=== PATIENT | female | born 1970 | race Hispanic/Latino ===

== ENCOUNTER 2018-08-13 09:12 | Observation (INO) | payer MEDICAID, OTHER ==
[2018-08-13] MEDS ORDERED: Aspirin 325 mg EC Tablets PO STA (10:24)
[2018-08-13] MEDS ORDERED: Sodium Chloride 0.9% 1,000 ML IV STA (10:25)
[2018-08-13] MEDS ORDERED: Magnesium Sulfate 1 gm in D5W 1 GM/100 ML BAG IVPB STA (10:25)
[2018-08-13] MEDS ORDERED: Sodium Chloride 0.9% 1,000 ML ONE (10:52)
--- NOTE | 2018-08-13 10:54 | RAD ---
HISTORY: chest pain COMPARISON: None available. TECHNIQUE: Chest PA and lateral FINDINGS: Examination limited by habitus. LUNGS: Biapical pleural thickening. Increased lucencies especially within the bilateral upper lung summers compatible with underlying emphysema. No focal consolidation. Please note that chest x-ray has limited sensitivity for the detection of pulmonary masses. PLEURA: No significant pleural effusion identified. No definite pneumothorax . CARDIOVASCULAR: Heart size appears within normal limits. OSSEOUS STRUCTURES: Osseous demineralization. Degenerative changes. VISUALIZED UPPER ABDOMEN: Unremarkable. OTHER FINDINGS: None. IMPRESSION: Emphysematous changes.
[2018-08-13 11:07] LABS: BASO # 0.1 K/uL (0.0-0.2); BASO % 1.1 % (0.0-2.0); EOS # 0.3 K/uL (0.0-0.7); EOS % 2.6 % (0.0-4.0); HEMOGLOBIN 11.8 g/dL (11.0-16.0); LYMPH # 2.7 K/uL (1.0-4.3); LYMPH % 25.6 % (20.0-40.0); MEAN CELL VOLUME 89.5 fL (81.0-99.0); MEAN CORPUSCULAR HEMOGLOBIN 29.9 pg (27.0-31.0); MEAN CORPUSCULAR HGB CONC 33.4 g/dL (33.0-37.0); MEAN PLATELET VOLUME 9.1 fL (7.2-11.7); MONO % 9.5 % (0.0-10.0); NEUT # 6.4 K/uL (1.8-7.0); NEUT % 61.2 % (50.0-75.0); RBC 3.94 Mil/uL (3.80-5.20); RED CELL DISTRIBUTION WIDTH 12.8 % (11.5-14.5); WHITE BLOOD COUNT 10.5 K/uL (4.8-10.8)
[2018-08-13 11:25] LABS: ALB/GLOB RATIO 1.3 (1.0-2.1); ALBUMIN 4.3 g/dL (3.5-5.0); ALT/SGPT 33 U/L (9-52); AST/SGOT 24 U/L (14-36); BLOOD UREA NITROGEN 24 mg/dL (7-17); CALCIUM 9.8 mg/dl (8.6-10.4); GFR NON-AFRICAN AMERICAN > 60; LIPASE 179 U/L (23-300)
--- NOTE | 2018-08-13 11:27 | C.PDOC ---
History Of Present Illness 47 year old female patient presents to ED for evaluation of chest pain, near syncope, and headache since 11pm last night. Notes continuos waxing and waning pain, she thought it was her reflux sos eh took her omeprazole with no improvement. Patient took Tylenol and Motrin 800mg for headache with no improvement. Patient states she feels lightheaded as if she is going to pass out , worse when walking. Patient reports she is taking clonidine for her menopause. Denies Hx of heart disease, fever, or chills. Time Seen by Provider: 08/13/18 10:02 Chief Complaint (Nursing): Chest Pain History Per: Patient History/Exam Limitations: no limitations Onset/Duration Of Symptoms: Hrs, Waxing/Waning Current Symptoms Are (Timing): Still Present Associated Symptoms: Other (Headache, Near syncope, Lightheadedness) Exacerbating Factors: None Alleviating Factors: None Recent travel outside of the [place]: No Past Medical History Reviewed: Historical Data, Nursing Documentation, Vital Signs Vital Signs: Last Vital Signs Temp 98.2 F 08/13/18 09:24 Pulse 93 H 08/13/18 09:24 Resp 18 08/13/18 09:24 BP 146/88 08/13/18 09:24 Pulse Ox 99 08/13/18 11:49 - Medical History PMH: Anxiety, Asthma, Depression, Migraine - [facility] Procedures INJECT/INFUSE NEC (07/09/14) Family History: States: Unknown Family Hx - Social History Hx Alcohol Use: Yes Hx Substance Use: No - Immunization History Hx Tetanus Toxoid Vaccination: Yes Hx Influenza Vaccination: No Hx Pneumococcal Vaccination: No Review Of Systems Except As Marked, All Systems Reviewed And Found Negative. Constitutional: Negative for: Fever, Chills Cardiovascular: Positive for: Chest Pain (near syncope ), Light Headedness. Negative for: Palpitations Respiratory: Negative for: Cough Gastrointestinal: Negative for: Nausea, Vomiting, Diarrhea Neurological: Positive for: Headache, Other (Near syncope) Physical Exam - Physical Exam Appears: Non-toxic Skin: Normal Color, Warm, Dry Head: Atraumatic, Normacephalic Eye(s): bilateral: Normal Inspection Oral Mucosa: Moist Neck: Normal, Supple Chest: Symmetrical Cardiovascular: Rhythm Regular Respiratory: Normal Breath Sounds, No Rales, No Rhonchi, No Wheezing Gastrointestinal/Abdominal: Soft, No Tenderness Back: No CVA Tenderness Extremity: Normal ROM (x4) Neurological/Psych: Oriented x3, Normal Speech Gait: Steady ED Course And Treatment - Laboratory Results Result Diagrams: 08/13/18 10:51 08/13/18 10:51 ECG: Interpreted By Me, Viewed By Me ECG Rhythm: Sinus Rhythm ECG Interpretation: Normal Rate From EC O2 Sat by Pulse Oximetry: 99 (RA) Pulse Ox Interpretation: Normal Progress - Re-Evaluation Re-evaluation Note: 08/13/18 11:46 CO PERSIST [facility]. NEURO INTACT. LABS, CT PE 08/13/18 12:05 D/W DR LANDAVERDE C/F PMD WILL ADMIT - Data Reviewed Data Reviewed: Lab, Diagnostic imaging, EKG, Old records Medical Decision Making Medical Decision Making: Plan: - CT Scan: head w/o contrast - Chest X-ray: PA/LAT - EKG sent: normal sinus 88 - Blood work sent. - Given: Asprin, Nitroglycerin, Magnesium Sulfate, Reglan, Sodium Chloride Disposition Counseled Patient/Family Regarding: Studies Performed, Diagnosis - Disposition Disposition: HOSPITALIZED Disposition Time: 12:05 Condition: STABLE Forms: [employer] (Kazakh) - POA Present On Arrival: None - Clinical Impression Clinical Impression: Chest pain, Headache - Scribe Statement The provider has reviewed the documentation as recorded by the Scribe (Delores Slater) Provider Attestation: All medical record entries made by the Scribe were at my direction and personally dictated by me. I have reviewed the chart and agree that the record accurately reflects my personal performance of the history, physical exam, medical decision making, and the department course for this patient. I have also personally directed, reviewed, and agree with the discharge instructions and disposition. Decision To Admit - Pt Status Changed To: Hospital Disposition Of: Observation - . Bed Request Type: Telemetry Admitting Physician: Gabriel Landaverde Patient Diagnosis: Chest pain, Headache
--- NOTE | 2018-08-13 11:35 | CT ---
Date of service: 08/13/2018 PROCEDURE: CT HEAD WITHOUT CONTRAST. HISTORY: HEADACHE COMPARISON: None available. TECHNIQUE: Axial computed tomography images were obtained through the head/brain without intravenous contrast. Radiation dose: Total exam DLP = 1127.29 mGy-cm. This CT exam was performed using one or more of the following dose reduction techniques: Automated exposure control, adjustment of the mA and/or kV according to patient size, and/or use of iterative reconstruction technique. . FINDINGS: HEMORRHAGE: No evidence of acute bony, subarachnoid or extra-axial hemorrhage. . BRAIN: Questionable minimal chronic periventricular white matter ischemic changes. . There also appear to be subtle low-attenuation changes both at anterior limbs of the internal capsules which could represent volume averaging of deep white matter however the possibility of a tiny chronic lacunar type infarcts also not excluded (axial series 4, image number 21 and 22). Mild generalized volume loss. No obvious parenchymal nor extra-axial mass or collection. . VENTRICLES: No obstructive hydrocephalus. CALVARIUM: Unr calvarium intact. PARANASAL SINUSES: Unremarkable as visualized. No significant inflammatory changes. MASTOID AIR CELLS: Unremarkable as visualized. No inflammatory changes. OTHER FINDINGS: None. IMPRESSION: No acute intracranial hemorrhage. Suspect minimal chronic periventricular white matter ischemic changes. Few small low-attenuation foci seen within the anterior limbs of both internal capsule likely representing volume averaging of deep white matter however the possibility tiny chronic lacunar type infarcts cannot be completely excluded.
[2018-08-13] MEDS ORDERED: Aspirin 325 mg EC Tablets PO ONE (11:40)
[2018-08-13] MEDS ORDERED: Magnesium Sulfate 1 gm in D5W 1 GM/100 ML BAG IVPB ONE (11:40)
--- NOTE | 2018-08-13 17:36 | CP.PCM.HP ---
Past Patient History - Past Social History Smoking Status: Never Smoked - PULMONARY Hx Asthma: Yes - NEUROLOGICAL Hx Migraine: Yes - PSYCHIATRIC Hx Anxiety: Yes Hx Depression: Yes Hx Substance Use: No - SURGICAL HISTORY Hx Surgeries: No Meds Allergies/Adverse Reactions: Allergies Allergy/AdvReac Type Severity Reaction Status Date / Time No Known Allergies Allergy Verified 08/13/18 10:24 Results - Vital Signs Recent Vital Signs: Last Vital Signs Temp 97.6 F 08/13/18 15:34 Pulse 68 08/13/18 15:34 Resp 18 08/13/18 15:34 BP 120/78 08/13/18 15:34 Pulse Ox 99 08/13/18 15:34 - Labs Result Diagrams: 08/13/18 10:51 08/13/18 10:51 Labs: Laboratory Results - last 24 hr 08/13/18 08/13/18 10:51 10:51 WBC 10.5 RBC 3.94 Hgb 11.8 Hct 35.3 MCV 89.5 MCH 29.9 MCHC 33.4 RDW 12.8 Plt Count 240 MPV 9.1 Neut % (Auto) 61.2 Lymph % (Auto) 25.6 [place] % (Auto) 9.5 Eos % (Auto) 2.6 Baso % (Auto) 1.1 Neut # (Auto) 6.4 Lymph # (Auto) 2.7 [place] # (Auto) 1.0 H Eos # (Auto) 0.3 Baso # (Auto) 0.1 Sodium 140 Potassium 4.1 Chloride 105 Carbon Dioxide 24 Anion Gap 16 BUN 24 H Creatinine 0.7 Est GFR ( Amer) > 60 Est GFR (Non-Af Amer) > 60 Random Glucose 88 Calcium 9.8 Total Bilirubin 0.6 AST 24 ALT 33 Alkaline Phosphatase 133 H Troponin I < 0.0120 Total Protein 7.6 Albumin 4.3 Globulin 3.3 Albumin/Globulin Ratio 1.3 Lipase 179
[2018-08-13] MEDS: Enoxaparin 40 mg Syringe SC SCH (18:18)
[2018-08-14] MEDS: Enoxaparin 40 mg Syringe SC SCH (09:54)
[2018-08-14] MEDS: Venlafaxine 150 mg ER Cap PO SCH (09:54)
--- NOTE | 2018-08-14 11:29 | CP.PCM.CON ---
<Javier Barajas E - Last Filed: 08/14/18 18:23> History of Present Illness - History of Present Illness History of Present Illness: Cardiology consult note ( Dr. Sheridan's service) HPI: Patient is a 47 year old female with past medical history GERD, asthma, migraines, anxiety and depression, who presented of the ED on 08/13/18 complaining of chest pain that started around 11pm after food. Patient describes the pain as a 7-8/10 intermittent pressure-like midsternal chest pain radiating to her right arm. Patient thought it was reflux and she took her omeprazole, which provided minimal relief. During the episode, patient took her BP and record a value of 150/90, ( normal BP 110/70), there she took her clonidine 0.1mg PO. Patient normally take clonidine for perimenopausal hotflashes. Patient admits to associated symptoms of headache (which she took Motrin 800mg along with Tylenol and a cup of coffee, with no relief), nausea, dizziness and mild shortness of breath but denies syncope, palpitations, visual disturbances, fever, chills, recent sickness or travels. PMD: Dr. So PMHx: GERD, asthma, migraines, anxiety, depression PSHx: denies FamHx: mother had [place] at 70 years old, last year from malignant melanoma Medications: Butalbital/ ASA/ Caffeine 1 tab PO Q6H, Clonidine 0.1mg TD HS, Singulair 10mg PO daily, Restoril 30mg PO HS and Effexor 150mg PO daily Allergies: NKDA Social Hx: Denies hx of tobacco use or illicit drug. Admits to social ETOH use Review of Systems - Constitutional Constitutional: Headache. absent: Chills, Fever - EENT Eyes: absent: Blurred Vision, Change in Vision Ears: Dizziness - Cardiovascular Cardiovascular: Chest Pain, Chest Pain at Rest, Dyspnea. absent: Palpitations - Respiratory Respiratory: Dyspnea - Gastrointestinal Gastrointestinal: Heartburn, Nausea. absent: Abdominal Pain, Vomiting - Reproductive: Female Additional comments: Perimenopausal - Neurological Neurological: Dizziness, Headaches. absent: Numbness, Tingling, Weakness - Endocrine Endocrine: absent: Palpitations Past Patient History - Past Social History Smoking Status: Never Smoked - PULMONARY Hx Asthma: Yes - NEUROLOGICAL Hx Migraine: Yes - PSYCHIATRIC Hx Anxiety: Yes Hx Depression: Yes Hx Substance Use: No - SURGICAL HISTORY Hx Surgeries: No Meds Allergies/Adverse Reactions: Allergies Allergy/AdvReac Type Severity Reaction Status Date / Time No Known Allergies Allergy Verified 08/13/18 10:24 - Medications Medications: Current Medications Clonidine HCl (Catapres Tts1 0.1 Mg/24 Hr) 1 patch TD QWK@2200 [facility] Last Admin: 08/13/18 21:23 Dose: 1 patch Enoxaparin Sodium (Lovenox) 40 mg SC DAILY [facility] Last Admin: 08/14/18 09:54 Dose: 40 mg Montelukast Sodium (Singulair) 10 mg PO DAILY [facility] Last Admin: 08/14/18 09:54 Dose: 10 mg Pantoprazole Sodium (Protonix Inj) 40 mg IVP DAILY [facility] Last Admin: 08/14/18 09:54 Dose: 40 mg Pneumococcal Polyvalent Vaccine (Pneumovax 23 Vaccine) 0.5 ml IM .ONCE ONE Stop: 08/15/18 10:01 Temazepam (Restoril) 30 mg PO [facility] Last Admin: 08/13/18 21:29 Dose: 30 mg Venlafaxine HCl (Effexor Xr) 150 mg PO DAILY [facility] Last Admin: 08/14/18 09:54 Dose: 150 mg Physical Exam - Constitutional Appears: No Acute Distress - Head Exam Head Exam: ATRAUMATIC, NORMAL INSPECTION - Eye Exam Eye Exam: EOMI, Normal appearance - ENT Exam ENT Exam: Mucous Membranes Moist - Respiratory Exam Respiratory Exam: Clear to Auscultation Bilateral, NORMAL BREATHING PATTERN. absent: Prolonged Expiratory Phase, Rhonchi, Wheezes, Respiratory Distress - Cardiovascular Exam Cardiovascular Exam: REGULAR RHYTHM, +S1, +S2 - GI/Abdominal Exam GI & Abdominal Exam: Normal Bowel Sounds, Soft. absent: Distended, Firm, Guarding, Tenderness - Extremities Exam Extremities exam: Positive for: normal inspection. Negative for: calf tenderness, pedal edema, tenderness - Neurological Exam Neurological exam: Alert, Oriented x3 - Psychiatric Exam Psychiatric exam: Anxious - Skin Skin Exam: Normal Color Results - Vital Signs Recent Vital Signs: Last Vital Signs Temp 98.1 F 08/14/18 07:49 Pulse 87 08/14/18 08:00 Resp 20 08/14/18 07:49 BP 130/83 08/14/18 07:49 Pulse Ox 98 08/14/18 08:00 - Labs Result Diagrams: 08/14/18 11:33 08/14/18 11:33 Labs: Laboratory Results - last 24 hr 08/13/18 08/13/18 10:51 19:23 Sodium 140 Potassium 4.1 Chloride 105 Carbon Dioxide 24 Anion Gap 16 BUN 24 H Creatinine 0.7 Est GFR ( Amer) > 60 Est GFR (Non-Af Amer) > 60 Random Glucose 88 Calcium 9.8 Total Bilirubin 0.6 AST 24 ALT 33 Alkaline Phosphatase 133 H Troponin I < 0.0120 < 0.0120 Total Protein 7.6 Albumin 4.3 Globulin 3.3 Albumin/Globulin Ratio 1.3 Lipase 179 Assessment & Plan (1) Chest pain Assessment and Plan: Patient is a 47 year old female with past medical history GERD, asthma, migraines, anxiety and depression, who presented of the ED on 08/13/18 complaining of 7-8/10 intermittent pressure-like midsternal chest pain radiating to her right arm, with associated symptoms of nausea, dizziness and headache: 1. EKG: NSR at 88, with no EKG changes 2. Troponin negative X2 3. TSH and free T4: 0.99 and 1.01, respectively 4. hgbA1c: 5.0 5. F/u am Lipid panel 6. F/u echocardiogram 7. Plans for pharmacological stress test tomorrow All plans and management discussed with Dr. Sheridan Status: Acute <Edgard Sheridan - Last Filed: 08/14/18 23:56> Meds - Medications Medications: Current Medications Acetaminophen (Tylenol 325mg Tab) 650 mg PO Q6 PRN PRN Reason: pain or headache Last Admin: 08/14/18 17:35 Dose: 650 mg Clonidine HCl (Catapres Tts1 0.1 Mg/24 Hr) 1 patch TD QWK@2200 [facility] Last Admin: 08/13/18 21:23 Dose: 1 patch Enoxaparin Sodium (Lovenox) 40 mg SC DAILY [facility] Last Admin: 08/14/18 09:54 Dose: 40 mg Montelukast Sodium (Singulair) 10 mg PO DAILY [facility] Last Admin: 08/14/18 09:54 Dose: 10 mg Pantoprazole Sodium (Protonix Inj) 40 mg IVP DAILY [facility] Last Admin: 08/14/18 09:54 Dose: 40 mg Pneumococcal Polyvalent Vaccine (Pneumovax 23 Vaccine) 0.5 ml IM .ONCE ONE Stop: 08/15/18 10:01 Temazepam (Restoril) 30 mg PO HS [facility] Last Admin: 08/14/18 21:10 Dose: 30 mg Venlafaxine HCl (Effexor Xr) 150 mg PO DAILY [facility] Last Admin: 08/14/18 09:54 Dose: 150 mg Results - Vital Signs Recent Vital Signs: Last Vital Signs Temp 97.7 F 08/14/18 15:54 Pulse 85 08/14/18 20:00 Resp 20 08/14/18 15:54 BP 147/93 H 08/14/18 15:54 Pulse Ox 98 08/14/18 16:00 - Labs Result Diagrams: 08/14/18 11:33 08/14/18 11:33 Labs: Laboratory Results - last 24 hr 08/14/18 08/14/18 08/14/18 11:33 11:33 11:33 WBC 8.1 RBC 3.77 L Hgb 11.2 Hct 33.6 L MCV 89.2 MCH 29.7 MCHC 33.3 RDW 13.0 Plt Count 218 MPV 9.4 Neut % (Auto) 62.6 Lymph % (Auto) 23.3 [place] % (Auto) 9.2 Eos % (Auto) 3.7 Baso % (Auto) 1.2 Neut # (Auto) 5.0 Lymph # (Auto) 1.9 [place] # (Auto) 0.7 Eos # (Auto) 0.3 Baso # (Auto) 0.1 Sodium 140 Potassium 3.5 L Chloride 108 H Carbon Dioxide 20 L Anion Gap 16 BUN 14 Creatinine 0.6 L Est GFR ( Amer) > 60 Est GFR (Non-Af Amer) > 60 Random Glucose 174 H Hemoglobin A1c 5.0 Calcium 8.7 Phosphorus 3.5 Magnesium 2.0 Total Bilirubin 0.3 AST 19 ALT 32 Alkaline Phosphatase 92 Total Protein 6.2 L Albumin 3.6 Globulin 2.6 Albumin/Globulin Ratio 1.4 Free T4 TSH 3rd Generation 0.99 08/14/18 11:33 WBC RBC Hgb Hct MCV MCH MCHC RDW Plt Count MPV Neut % (Auto) Lymph % (Auto) [place] % (Auto) Eos % (Auto) Baso % (Auto) Neut # (Auto) Lymph # (Auto) [place] # (Auto) Eos # (Auto) Baso # (Auto) Sodium Potassium Chloride Carbon Dioxide Anion Gap BUN Creatinine Est GFR ( Amer) Est GFR (Non-Af Amer) Random Glucose Hemoglobin A1c Calcium Phosphorus Magnesium Total Bilirubin AST ALT Alkaline Phosphatase Total Protein Albumin Globulin Albumin/Globulin Ratio Free T4 1.01 TSH 3rd Generation Assessment & Plan - Assessment and Plan (Free Text) Assessment: Patient seen and evaluated personally by me Plan of care d/w the medical pathologist and as documented
[2018-08-14 11:42] LABS: BASO # 0.1 K/uL (0.0-0.2); BASO % 1.2 % (0.0-2.0); EOS # 0.3 K/uL (0.0-0.7); EOS % 3.7 % (0.0-4.0); HEMOGLOBIN 11.2 g/dL (11.0-16.0); LYMPH # 1.9 K/uL (1.0-4.3); LYMPH % 23.3 % (20.0-40.0); MEAN CELL VOLUME 89.2 fL (81.0-99.0); MEAN CORPUSCULAR HEMOGLOBIN 29.7 pg (27.0-31.0); MEAN CORPUSCULAR HGB CONC 33.3 g/dL (33.0-37.0); MEAN PLATELET VOLUME 9.4 fL (7.2-11.7); MONO # 0.7 K/uL (0.0-0.8); MONO % 9.2 % (0.0-10.0); NEUT % 62.6 % (50.0-75.0); NRBC % 0.1 % (0.0-2.0); RBC 3.77 Mil/uL (3.80-5.20); WHITE BLOOD COUNT 8.1 K/uL (4.8-10.8)
[2018-08-14 12:23] LABS: ALB/GLOB RATIO 1.4 (1.0-2.1); ALBUMIN 3.6 g/dL (3.5-5.0); ALT/SGPT 32 U/L (9-52); AST/SGOT 19 U/L (14-36); BLOOD UREA NITROGEN 14 mg/dL (7-17); CALCIUM 8.7 mg/dl (8.6-10.4); GFR NON-AFRICAN AMERICAN > 60
--- NOTE | 2018-08-14 18:08 | CP.PCM.PN ---
Subjective - Date & Time of Evaluation Date of Evaluation: 08/14/18 Time of Evaluation: 18:08 Objective - Vital Signs/Intake and Output Vital Signs (last 24 hours): Temp Pulse Resp BP Pulse Ox 97.7 F 84 20 147/93 H 98 08/14/18 15:54 08/14/18 16:00 08/14/18 15:54 08/14/18 15:54 08/14/18 16:00 Intake and Output: 08/14/18 08/14/18 06:59 18:59 Intake Total 120 Balance 120 - Medications Medications: Current Medications Acetaminophen (Tylenol 325mg Tab) 650 mg PO Q6 PRN PRN Reason: pain or headache Last Admin: 08/14/18 17:35 Dose: 650 mg Clonidine HCl (Catapres Tts1 0.1 Mg/24 Hr) 1 patch TD QWK@2200 [facility] Last Admin: 08/13/18 21:23 Dose: 1 patch Enoxaparin Sodium (Lovenox) 40 mg SC DAILY [facility] Last Admin: 08/14/18 09:54 Dose: 40 mg Montelukast Sodium (Singulair) 10 mg PO DAILY [facility] Last Admin: 08/14/18 09:54 Dose: 10 mg Pantoprazole Sodium (Protonix Inj) 40 mg IVP DAILY [facility] Last Admin: 08/14/18 09:54 Dose: 40 mg Pneumococcal Polyvalent Vaccine (Pneumovax 23 Vaccine) 0.5 ml IM .ONCE ONE Stop: 08/15/18 10:01 Temazepam (Restoril) 30 mg PO [facility] Last Admin: 08/13/18 21:29 Dose: 30 mg Venlafaxine HCl (Effexor Xr) 150 mg PO DAILY [facility] Last Admin: 08/14/18 09:54 Dose: 150 mg - Labs Labs: 08/14/18 11:33 08/14/18 11:33
[2018-08-15 05:02] LABS: CK-MB < 0.22 ng/mL (0.0-3.38)
--- NOTE | 2018-08-15 05:48 | CARD ---
APPROVED REPORT Date of service: 08/14/2018 EXAM: Two-dimensional and M-mode echocardiogram with Doppler and color Doppler. INDICATION Chest Pain 2D DIMENSIONS IVSd0.8 (0.7-1.1cm)Aortic Root (2D)2.4 (2.0-3.7cm) LVDd3.8 (3.9-5.9cm)PWd0.8 (0.7-1.1cm) LVDs2.3 (2.5-4.0cm)FS (%) 37.9 % LVEF (%)68.9 (>50%) M-Mode DIMENSIONS RVDd1.76 (2.1-3.2cm)Left Atrium (MM)3.10 (2.5-4.0cm) IVSd0.70 (0.7-1.1cm)Aortic Root2.19 (2.2-3.7cm) LVDd4.10 (4.0-5.6cm)Aortic Cusp Exc.1.64 (1.5-2.0cm) PWd0.64 (0.7-1.1cm)FS (%) 41 % LVDs2.40 (2.0-3.8cm)LVEF (%)73 (>50%) Mitral Valve MV E Vnxpmyxm820.2cm/sMV A Mhkwodwt36.5cm/sE/A ratio1.2 TDI E/Lateral E'0.0E/Medial E'0.0 Tricuspid Valve TR Peak Mxnkhbax174pv/sTR Peak Gr.[id number] LEFT VENTRICLE The left ventricle is normal size. There is normal left ventricular wall thickness. Left ventricle systolic function is normal. The Ejection Fraction is 65-70%. There is normal LV segmental wall motion. The left ventricular diastolic function is normal. No left ventricle thrombus noted on this study. RIGHT VENTRICLE The right ventricle is normal size. There is normal right ventricular wall thickness. The right ventricular systolic function is normal. ATRIA The left atrium size is normal. The right atrium size is normal. The interatrial septum is intact with no evidence for an atrial septal defect. AORTIC VALVE The aortic valve is normal in structure. No aortic regurgitation is present. There is no aortic valvular stenosis. There is no aortic valvular vegetation. MITRAL VALVE The mitral valve is normal in structure. There is no evidence of mitral valve prolapse. There is no mitral valve stenosis. There is no mitral valve regurgitation noted. TRICUSPID VALVE The tricuspid valve is normal in structure. There is trace tricuspid regurgitation. Right ventricular systolic pressure is estimated at 30 mmHg. There is no pulmonary hypertension. PULMONIC VALVE The pulmonic valve is not well visualized. There is no pulmonic valvular regurgitation. GREAT VESSELS The aortic root is normal in size. PERICARDIAL EFFUSION There is no significant pericardial effusion. <Conclusion> Left ventricle systolic function is normal. The Ejection Fraction is 65-70%. No aortic regurgitation is present. There is no mitral valve regurgitation noted. There is trace tricuspid regurgitation. There is no pulmonary hypertension. There is no pulmonic valvular regurgitation.
[2018-08-15] MEDS ORDERED: Caffeine Citrated **INJ** 20 MG/ML IV ONE (07:19)
[2018-08-15 08:11] LABS: HDL CHOLESTEROL 51 mg/dL (30-70)
[2018-08-15 08:25] LABS: LDL CHOLESTEROL 125 mg/dL (0-129)
[2018-08-15] MEDS ORDERED: Pneumococcal 23-Valent Vaccine IM ONE (10:00)
[2018-08-15] MEDS: Venlafaxine 150 mg ER Cap PO SCH (10:31)
[2018-08-15] MEDS: Enoxaparin 40 mg Syringe SC SCH (10:31)
[2018-08-15] MEDS: Apap-Butalbital-Caffeine 325-50-40mg Tab PO PRN ×2 (14:29→23:36)
[2018-08-15] MEDS ORDERED: Potassium Chloride 20 mEq ER Tab PO ONE (16:15)
--- NOTE | 2018-08-15 16:20 | CP.PCM.PN ---
Subjective - Date & Time of Evaluation Date of Evaluation: 08/15/18 Time of Evaluation: 16:20 Objective - Vital Signs/Intake and Output Vital Signs (last 24 hours): Temp Pulse Resp BP Pulse Ox 98.1 F 88 20 135/88 98 08/15/18 15:05 08/15/18 15:05 08/15/18 15:05 08/15/18 15:05 08/15/18 15:05 - Medications Medications: Current Medications Acetaminophen (Tylenol 325mg Tab) 650 mg PO Q6 PRN PRN Reason: pain or headache Last Admin: 08/15/18 10:33 Dose: 650 mg Acetaminophen/Butalbital/Caffeine (Fioricet) 1 tab PO Q6H PRN PRN Reason: Migraine headache Last Admin: 08/15/18 14:29 Dose: 1 tab Clonidine HCl (Catapres Tts1 0.1 Mg/24 Hr) 1 patch TD QWK@2200 [facility] Last Admin: 08/13/18 21:23 Dose: 1 patch Enoxaparin Sodium (Lovenox) 40 mg SC DAILY [facility] Last Admin: 08/15/18 10:31 Dose: 40 mg Mometasone Furoate (Asmanex Twisthaler 110 Mcg) 1 puff INH RBID [facility] Montelukast Sodium (Singulair) 10 mg PO DAILY [facility] Last Admin: 08/15/18 10:31 Dose: 10 mg Pantoprazole Sodium (Protonix Inj) 40 mg IVP DAILY [facility] Last Admin: 08/15/18 10:31 Dose: 40 mg Potassium Chloride (K-Dur 20 Meq Er Tab) 40 meq PO ONCE ONE Stop: 08/15/18 16:16 Temazepam (Restoril) 30 mg PO HS [facility] Last Admin: 08/14/18 21:10 Dose: 30 mg Venlafaxine HCl (Effexor Xr) 150 mg PO DAILY [facility] Last Admin: 08/15/18 10:31 Dose: 150 mg - Labs Labs: 08/14/18 11:33 08/14/18 11:33
[2018-08-15] MEDS ORDERED: Iodixanol 320 MG/ML 100 ML BOTTLE IV ONE (16:45)
--- NOTE | 2018-08-15 17:28 | CT ---
Date of service: 08/15/18 CTA chest PE protocol Indication: Rule out PE Technique: Contiguous axial images were obtained through the chest with intravenous contrast enhancement. Sagittal and coronal reconstructions were generated and reviewed. This CT exam was performed using 1 or more of the following dose reduction techniques: Automated exposure control, adjustment of the MAA and/or kV according to patient size, and/or use of iterative reconstruction technique. IV Contrast: 100 mL Visipaque IV Radiation dose (DLP): 419.14 MGy-cm. Comparison: Chest x-ray performed 08/13/18 Findings: Visualized portions of the inferior thyroid gland appear unremarkable. The mediastinal and hilar vascular structures appear within normal limits. The heart appears within normal limits of size. No large central or segmental pulmonary embolus evident. No focal consolidation. No pleural effusion. No pneumothorax. No suspicious pulmonary nodules measuring greater than 5 mm. Limited visualized portions of the upper abdomen appear grossly unremarkable. No acute osseous abnormality is detected. Impression: No large central or segmental pulmonary embolus identified.
[2018-08-15] MEDS: Mometasone 110 mcg/puff-30 puff Inh INH SCH (22:26)
[2018-08-16] MEDS: Apap-Butalbital-Caffeine 325-50-40mg Tab PO PRN ×2 (05:52→18:54)
[2018-08-16] MEDS: Mometasone 110 mcg/puff-30 puff Inh INH SCH ×2 (07:52→19:45)
[2018-08-16] MEDS: Venlafaxine 150 mg ER Cap PO SCH (09:53)
[2018-08-16] MEDS: Enoxaparin 40 mg Syringe SC SCH (09:56)
--- NOTE | 2018-08-16 18:46 | CP.PCM.PN ---
Subjective - Date & Time of Evaluation Date of Evaluation: 08/16/18 Time of Evaluation: 18:46 Objective - Vital Signs/Intake and Output Vital Signs (last 24 hours): Temp Pulse Resp BP Pulse Ox 98.1 F 81 18 123/83 96 08/16/18 15:47 08/16/18 16:00 08/16/18 15:47 08/16/18 15:47 08/16/18 15:47 - Medications Medications: Current Medications Acetaminophen (Tylenol 325mg Tab) 650 mg PO Q6 PRN PRN Reason: pain or headache Last Admin: 08/15/18 10:33 Dose: 650 mg Acetaminophen/Butalbital/Caffeine (Fioricet) 1 tab PO Q6H PRN PRN Reason: Migraine headache Last Admin: 08/16/18 05:52 Dose: 1 tab Clonidine HCl (Catapres Tts1 0.1 Mg/24 Hr) 1 patch TD QWK@2200 [facility] Last Admin: 08/13/18 21:23 Dose: 1 patch Enoxaparin Sodium (Lovenox) 40 mg SC DAILY [facility] Last Admin: 08/16/18 09:56 Dose: 40 mg Mometasone Furoate (Asmanex Twisthaler 110 Mcg) 1 puff INH RBID [facility] Last Admin: 08/16/18 07:52 Dose: 1 puff Montelukast Sodium (Singulair) 10 mg PO DAILY [facility] Last Admin: 08/16/18 09:53 Dose: 10 mg Pantoprazole Sodium (Protonix Inj) 40 mg IVP DAILY [facility] Last Admin: 08/16/18 09:53 Dose: 40 mg Temazepam (Restoril) 30 mg PO HS [facility] Last Admin: 08/15/18 21:16 Dose: 30 mg Venlafaxine HCl (Effexor Xr) 150 mg PO DAILY [facility] Last Admin: 08/16/18 09:53 Dose: 150 mg - Labs Labs: 08/14/18 11:33 08/14/18 11:33
--- NOTE | 2018-08-16 22:58 | CP.PCM.PN ---
Subjective - Date & Time of Evaluation Date of Evaluation: 08/16/18 Time of Evaluation: 09:50 - Subjective Subjective: Patient s/p stress test Normal stress test and normal EF Medical management Objective - Vital Signs/Intake and Output Vital Signs (last 24 hours): Temp Pulse Resp BP Pulse Ox 98.1 F 81 18 123/83 96 08/16/18 15:47 08/16/18 16:00 08/16/18 15:47 08/16/18 15:47 08/16/18 15:47 - Medications Medications: Current Medications Acetaminophen (Tylenol 325mg Tab) 650 mg PO Q6 PRN PRN Reason: pain or headache Last Admin: 08/15/18 10:33 Dose: 650 mg Acetaminophen/Butalbital/Caffeine (Fioricet) 1 tab PO Q6H PRN PRN Reason: Migraine headache Last Admin: 08/16/18 18:54 Dose: 1 tab Clonidine HCl (Catapres Tts1 0.1 Mg/24 Hr) 1 patch TD QWK@2200 [facility] Last Admin: 08/13/18 21:23 Dose: 1 patch Enoxaparin Sodium (Lovenox) 40 mg SC DAILY [facility] Last Admin: 08/16/18 09:56 Dose: 40 mg Mometasone Furoate (Asmanex Twisthaler 110 Mcg) 1 puff INH RBID [facility] Last Admin: 08/16/18 19:45 Dose: 1 puff Montelukast Sodium (Singulair) 10 mg PO DAILY [facility] Last Admin: 08/16/18 09:53 Dose: 10 mg Pantoprazole Sodium (Protonix Inj) 40 mg IVP DAILY [facility] Last Admin: 08/16/18 09:53 Dose: 40 mg Temazepam (Restoril) 30 mg PO HS [facility] Last Admin: 08/16/18 21:18 Dose: 30 mg Venlafaxine HCl (Effexor Xr) 150 mg PO DAILY [facility] Last Admin: 08/16/18 09:53 Dose: 150 mg - Labs Labs: 08/14/18 11:33 08/14/18 11:33
[2018-08-17 00:18] VITALS: RESP 20
[2018-08-17] MEDS: Mometasone 110 mcg/puff-30 puff Inh INH SCH ×2 (07:38→20:26)
--- NOTE | 2018-08-17 08:28 | CARD ---
APPROVED REPORT Date of service: 08/13/2018 EKG Measurement Heart [id number] <Conclusion> Normal sinus rhythm Normal ECG
--- NOTE | 2018-08-17 08:40 | CARD ---
APPROVED REPORT Date of service: 08/15/2018 Protocol: LEXISCAN Test Type: LEXISCAN STRESS Test Indications: CHEST PAIN HTN Target HR: 171 bpm Resting ECG: normal Resting Heart Rate: 86 bpm Resting Blood Pressure: 138/90mmHg submaximum (85%): 145 bpm TEST SUMMARY [id number]:02..1.079/.0. PREINFSNHYPERV.13:490.00.01.405375/90.0. INFUSIONDOSE 100:300.00.01.082/.0. XQIECGQRK48:080.00.01.9916707/90.0. PROCEDURE Pharmacologic stress testing was performed using 0.4mg per 5ml of regadenoson given intravenously over 7-10 seconds. POST EXERCISE Reason for Termination: Protocol Completed Target HR: No Max HR: 82 bpm 71% of Maximum Predicted HR: 171 bpm Exercise duration: 00:30 min:sec, 0 Stage Exercise capacity: 1.0METs Max Blood Pressure: 138/90mmHg Blood Pressure response to exercise: normal resting BP - appropriate response Heart Rate response to exercise: appropriate Chest Pain: Yes, non-limiting Angina index: 0 Arrhythmia: No, none ST Change: No, none Deviation: 0 mm INTERPRETATION Stress EKG Conclusion: NUCLEAR REPORT TO FOLLOW EXAM: Myocardial Perfusion STRESS/REST Imaging Protocol The imaging protocol used to acquire images was Stress Tc-99m/rest Tc-99m 1 day Stress Spect myocardial perfusion imaging was performed in supine position 40 minutes following the injection of 13.2 mCi of Tc-99 Myoview. Gated RestRest Spect was performed 41 minutes after intravenous 32.4 mCi Tc-99 Myoview injection. The images were gated to evaluate regional wall motion and calculate ventricular ejection fraction.Images were reconstructed using backfilter projection method in short horizontal and verticle long axis. Spect slices were generated. RESTING DATA EDV54.59fpHB9.90L/min ESV8.00mlMyocardial Gbvy403.00g Av. Heart Rate84.00bpm EF85.00% STRESS DATA EDV53.37ygVL8.20L/min ESV6.00mlMyocardial Mass99.00g EF89.00% Regional WT score at stress:0.00 Regional WM score at stress:0.00 Summed WT score at stress:0.00 Av. Heart Rate90.00bpmSummed WM score at stress:0.00 LV Perf. Quant 17 Seg. SSS1.00 17 Seg. SRS0.00 17 Seg. SDS1.00 Stress Defect Extent (% LAD)0.00Rest Defect Extent (% LAD)0.00Rev. Defect Extent (% LAD)0.00 Stress Defect Extent (% LCX)27.50Rest Defect Extent (% LCX)0.00Rev. Defect Extent (% LCX)27.50 Stress Defect Extent (% RCA)0.00Rest Defect Extent (% RCA)0.00Rev. Defect Extent (% RCA)0.00 Stress Defect Extent (% MARTHA)4.80Rest Defect Extent (% MARTHA)0.00Rev. Defect Extent (% MARTHA)4.80 Other Information Quality:Good IMPRESSION Normal Myocardial Perfusion exercise stress study Left Ventricle LV Function:Left ventricle systolic function is normal. The Ejection Fraction is >55%. Metabolism/Perfusion There are no perfusion/metabolism defects. Conclusion 1. Normal Lexiscan Nuclear stress test. Normal EF
[2018-08-17] MEDS: Apap-Butalbital-Caffeine 325-50-40mg Tab PO PRN (08:51)
[2018-08-17] MEDS: Venlafaxine 150 mg ER Cap PO SCH (10:18)
[2018-08-17] MEDS: Enoxaparin 40 mg Syringe SC SCH (10:19)
--- NOTE | 2018-08-17 17:13 | CP.PCM.PN ---
Subjective - Date & Time of Evaluation Date of Evaluation: 08/17/18 Time of Evaluation: 17:13 Objective - Vital Signs/Intake and Output Vital Signs (last 24 hours): Temp Pulse Resp BP Pulse Ox 98.3 F 85 20 113/73 96 08/17/18 07:00 08/17/18 07:00 08/17/18 07:00 08/17/18 07:00 08/17/18 07:00 Intake and Output: 08/17/18 08/17/18 06:59 18:59 Intake Total 240 Balance 240 - Medications Medications: Current Medications Acetaminophen (Tylenol 325mg Tab) 650 mg PO Q6 PRN PRN Reason: pain or headache Last Admin: 08/15/18 10:33 Dose: 650 mg Acetaminophen/Butalbital/Caffeine (Fioricet) 1 tab PO Q6H PRN PRN Reason: Migraine headache Last Admin: 08/17/18 08:51 Dose: 1 tab Clonidine HCl (Catapres Tts1 0.1 Mg/24 Hr) 1 patch TD QWK@2200 [facility] Last Admin: 08/13/18 21:23 Dose: 1 patch Enoxaparin Sodium (Lovenox) 40 mg SC DAILY [facility] Last Admin: 08/17/18 10:19 Dose: 40 mg Mometasone Furoate (Asmanex Twisthaler 110 Mcg) 1 puff INH RBID [facility] Last Admin: 08/17/18 07:38 Dose: 1 puff Montelukast Sodium (Singulair) 10 mg PO DAILY [facility] Last Admin: 08/17/18 10:18 Dose: 10 mg Pantoprazole Sodium (Protonix Inj) 40 mg IVP DAILY [facility] Last Admin: 08/17/18 10:19 Dose: 40 mg Temazepam (Restoril) 30 mg PO HS [facility] Last Admin: 08/16/18 21:18 Dose: 30 mg Venlafaxine HCl (Effexor Xr) 150 mg PO DAILY [facility] Last Admin: 08/17/18 10:18 Dose: 150 mg - Labs Labs: 08/14/18 11:33 08/14/18 11:33
--- NOTE | 2018-08-17 20:12 | CP.PCM.PN ---
Subjective - Date & Time of Evaluation Date of Evaluation: 08/17/18 Time of Evaluation: 10:30 - Subjective Subjective: Patient seen and evaluated Normal stress test and Normal Ef Non cardiac chest pain Medical management Objective - Vital Signs/Intake and Output Vital Signs (last 24 hours): Temp Pulse Resp BP Pulse Ox 98.0 F 91 H 20 119/86 98 08/17/18 15:00 08/17/18 15:00 08/17/18 15:00 08/17/18 15:00 08/17/18 15:00 - Medications Medications: Current Medications Acetaminophen (Tylenol 325mg Tab) 650 mg PO Q6 PRN PRN Reason: pain or headache Last Admin: 08/15/18 10:33 Dose: 650 mg Acetaminophen/Butalbital/Caffeine (Fioricet) 1 tab PO Q6H PRN PRN Reason: Migraine headache Last Admin: 08/17/18 08:51 Dose: 1 tab Clonidine HCl (Catapres Tts1 0.1 Mg/24 Hr) 1 patch TD QWK@2200 [facility] Last Admin: 08/13/18 21:23 Dose: 1 patch Enoxaparin Sodium (Lovenox) 40 mg SC DAILY [facility] Last Admin: 08/17/18 10:19 Dose: 40 mg Mometasone Furoate (Asmanex Twisthaler 110 Mcg) 1 puff INH RBID [facility] Last Admin: 08/17/18 07:38 Dose: 1 puff Montelukast Sodium (Singulair) 10 mg PO DAILY [facility] Last Admin: 08/17/18 10:18 Dose: 10 mg Pantoprazole Sodium (Protonix Inj) 40 mg IVP DAILY [facility] Last Admin: 08/17/18 10:19 Dose: 40 mg Temazepam (Restoril) 30 mg PO HS [facility] Last Admin: 08/16/18 21:18 Dose: 30 mg Venlafaxine HCl (Effexor Xr) 150 mg PO DAILY [facility] Last Admin: 08/17/18 10:18 Dose: 150 mg - Labs Labs: 08/14/18 11:33 08/14/18 11:33
[2018-08-18] MEDS: Apap-Butalbital-Caffeine 325-50-40mg Tab PO PRN (01:16)
[2018-08-18 02:26] VITALS: BP 126/84; TEMP 98.1; O2SAT 97
[2018-08-18] MEDS: Venlafaxine 150 mg ER Cap PO SCH (10:34)
[2018-08-18] MEDS: Enoxaparin 40 mg Syringe SC SCH (10:36)
[2018-08-18 12:19] VITALS: PULSE 78
--- NOTE | 2018-08-19 00:55 | CP.PCM.DIS ---
Provider - Provider Date of Admission: 08/13/18 12:11 Attending physician: Gabriel Landaverde MD Time Spent in preparation of Discharge (in minutes): 35 Hospital Course - Lab Results Lab Results: Most Recent Lab Values WBC 8.1 K/uL (4.8-10.8) 08/14/18 11:33 RBC 3.77 Mil/uL (3.80-5.20) L 08/14/18 11:33 Hgb 11.2 g/dL (11.0-16.0) 08/14/18 11:33 Hct 33.6 % (34.0-47.0) L 08/14/18 11:33 MCV 89.2 fL (81.0-99.0) 08/14/18 11:33 MCH 29.7 pg (27.0-31.0) 08/14/18 11:33 MCHC 33.3 g/dL (33.0-37.0) 08/14/18 11:33 RDW 13.0 % (11.5-14.5) 08/14/18 11:33 Plt Count 218 K/uL (130-400) 08/14/18 11:33 MPV 9.4 fL (7.2-11.7) 08/14/18 11:33 Neut % (Auto) 62.6 % (50.0-75.0) 08/14/18 11:33 Lymph % (Auto) 23.3 % (20.0-40.0) 08/14/18 11:33 Lyman % (Auto) 9.2 % (0.0-10.0) 08/14/18 11:33 Eos % (Auto) 3.7 % (0.0-4.0) 08/14/18 11:33 Baso % (Auto) 1.2 % (0.0-2.0) 08/14/18 11:33 Neut # (Auto) 5.0 K/uL (1.8-7.0) 08/14/18 11:33 Lymph # (Auto) 1.9 K/uL (1.0-4.3) 08/14/18 11:33 Lyman # (Auto) 0.7 K/uL (0.0-0.8) 08/14/18 11:33 Eos # (Auto) 0.3 K/uL (0.0-0.7) 08/14/18 11:33 Baso # (Auto) 0.1 K/uL (0.0-0.2) 08/14/18 11:33 Sodium 140 mmol/L (132-148) 08/14/18 11:33 Potassium 3.5 mmol/L (3.6-5.2) L 08/14/18 11:33 Chloride 108 mmol/L (98-107) H 08/14/18 11:33 Carbon Dioxide 20 mmol/L (22-30) L 08/14/18 11:33 Anion Gap 16 (10-20) 08/14/18 11:33 BUN 14 mg/dL (7-17) 08/14/18 11:33 Creatinine 0.6 mg/dL (0.7-1.2) L 08/14/18 11:33 Est GFR ( Amer) > 60 08/14/18 11:33 Est GFR (Non-Af Amer) > 60 08/14/18 11:33 Random Glucose 174 mg/dL (65-105) H 08/14/18 11:33 Hemoglobin A1c 5.0 % (4.2-6.5) 08/14/18 11:33 Calcium 8.7 mg/dl (8.6-10.4) 08/14/18 11:33 Phosphorus 3.5 mg/dL (2.5-4.5) 08/14/18 11:33 Magnesium 2.0 mg/dL (1.6-2.3) 08/14/18 11:33 Total Bilirubin 0.3 mg/dL (0.2-1.3) 08/14/18 11:33 AST 19 U/L (14-36) 08/14/18 11:33 ALT 32 U/L (9-52) 08/14/18 11:33 Alkaline Phosphatase 92 U/L (38-126) 08/14/18 11:33 Total Creatine Kinase 37 U/L (30-135) 08/15/18 04:32 CK-MB (Mass) < 0.22 ng/mL (0.0-3.38) 08/15/18 04:32 Troponin I < 0.0120 ng/mL (0.00-0.120) 08/15/18 04:32 Total Protein 6.2 g/dL (6.3-8.3) L 08/14/18 11:33 Albumin 3.6 g/dL (3.5-5.0) 08/14/18 11:33 Globulin 2.6 gm/dL (2.2-3.9) 08/14/18 11:33 Albumin/Globulin Ratio 1.4 (1.0-2.1) 08/14/18 11:33 Triglycerides 78 mg/dL (0-149) 08/15/18 07:35 Cholesterol 215 mg/dL (0-199) H 08/15/18 07:35 LDL Cholesterol Direct 125 mg/dL (0-129) 08/15/18 07:35 HDL Cholesterol 51 mg/dL (30-70) 08/15/18 07:35 Lipase 179 U/L (23-300) 08/13/18 10:51 Free T4 1.01 ng/dL (0.78-2.19) 08/14/18 11:33 TSH 3rd Generation 0.99 mIU/L (0.46-4.68) 08/14/18 11:33 Urine HCG, Qual Negative (NEGATIVE) 08/15/18 16:14 Discharge Exam - Head Exam Head Exam: ATRAUMATIC, NORMAL INSPECTION Discharge Plan - Discharge Medications Prescriptions: Docosanol [Abreva] 10 % TP DAILY PRN #1 cream..g. PRN Reason: COLD SORE Mometasone Furoate [Asmanex] 110 mcg IH BID #1 aer.pow.ba Butalbital/Aspirin/Caffeine [Ftnsxm-Xzjlqba-Nggpc 50-325-40] 1 each PO Q6H PRN # 40 tablet PRN Reason: Headache cloNIDine 0.1 mg/24 hr [catapres TTS1 0.1 mg/24 hr] 0.1 mg TD QWK #4 patch Venlafaxine [Effexor XR] 150 mg PO DAILY #30 cer Guaifenesin [Mucinex] 600 mg PO Q12 PRN #10 tab.er.12h PRN Reason: CONGESTION, COUGH Temazepam [Restoril] 30 mg PO HS #30 cap Montelukast [Singulair] 10 mg PO DAILY #30 tab Azithromycin [Z-Sim] 250 mg PO DAILY #6 tab - Follow Up Plan Condition: STABLE Disposition: HOME/ ROUTINE Instructions: Heart Healthy Diet, Azithromycin (Systemic), Chest Pain (DC), Syncope (Fainting) (DC), Headache, Adult (DC), Butalbital, Aspirin, and Caffeine , Guaifenesin, Montelukast Additional Instructions: -FOLLOW UP WITH YOUR PRIMARY DOCTOR, IN THE OFFICE WITHIN 5-7 DAYS----CALL THE OFFICE TO MAKE YOUR APPT. -FOLLOW UP WITH YOUR PRIMARY PROFESSIONAL SOCCER PLAYER OR WITH DR. MORENO IN THE OFFICE WITHIN 10-14 DAYS----CALL THE OFFICE TO MAKE YOUR APPT. -CONTINUE ALL HOME MEDICATIONS USUAL. REFILLS HAVE BEEN SENT TO YOUR PHARMACY; YOU MAY PICK THEM UP TODAY. -YOU MAY TAKE CORICIDIN (OVER THE COUNTER DECONGESTANT) DIRECTED AND NEEDED FOR CONGESTION--THIS IS SAFE TO TAKE WITH YOUR HIGH BLOOD PRESSURE. IF YOU PREFER TO TAKE MUCINEX, YOU HAVE BEEN PRESCRIBED THIS FOR YOUR CONGESTION. -IF YOU ARE STILL EXPERIENCING CONGESTION AND THROAT IRRITATION IN 3 DAYS, YOU HAVE BEEN GIVEN A PRESCRIPTION FOR AN ANTIBIOTIC. -FOR FURTHER CONCERNS OR QUESTIONS, CONTACT DR. LANDAVERDE'S OFFICE. Referrals: Edgard Moreno MD [Staff Provider] - Gabriel Landaverde MD [Staff Provider] -
== END 2018-08-18 12:55 | disposition home or self-care (01) ==
LOC: C.ER 09:12 → C.9E 12:11 → C.6T 12:54
PROVIDERS: ADMIT Internal Medicine Critical Care Medicine; ATTEND Internal Medicine Critical Care Medicine
DX: R07.89 Other chest pain (principal); R51 Headache; J45.909 Unspecified asthma, uncomplicated; K21.9 Gastro-esophageal reflux disease without esophagitis
CPT/HCPCS: 36415; 70450; 71046; 71275; 78452; 80053; 80061; 83036; 83690; 83735; 84100; 84439; 84443; 84484; 84703; 85025; 90471; 90732; 93005; 93017; 93306; 94640; 96360; 96365; 96374; 99284; A9502; C9113; G0378; J1650; J1885; J2765; J2785; J3475; J7030; Q9967